=== PATIENT | female | born 1965 | race Two or more races ===

== ENCOUNTER 2018-06-23 06:17 | Day surgery (SDC) | payer BC ==
[2018-06-23 07:57] LABS: ADD MAN DIFF? NO
[2018-06-23 08:14] LABS: WHITE BLOOD COUNT 7.9 10^3/ul (4.8-10.8)
[2018-06-23 08:14] LABS: BASOPHIL # 0.1 10^3/ul (0.0-0.1); BASOPHILS % 0.8 % (0.0-2.0); EOSINOPHILS # 0.2 10^3/ul (0.0-0.5); HEMATOCRIT 38.6 % (37.0-47.0); HEMOGLOBIN 12.7 g/dl (12.0-16.0); LYMPHOCYTES # 2.9 10^3/ul (0.8-2.9); LYMPHOCYTES % 36.5 % (15.0-51.0); MEAN CORPUSCULAR HEMOGLOBIN 30.4 pg (29.0-33.0); MEAN CORPUSCULAR HGB CONC 32.9 g/dl (32.0-37.0); MEAN CORPUSCULAR VOLUME 92.3 fl (82.0-101.0); MEAN PLATELET VOLUME 9.4 fl (7.4-10.4); MONOCYTE # 0.7 10^3/ul (0.3-0.9); MONOCYTES % 8.7 % (0.0-11.0); NEUTROPHIL # 4.1 10^3/ul (1.6-7.5); NEUTROPHILS % 51.6 % (39.0-77.0); PLATELET COUNT 328 10^3/UL (140-415); RED BLOOD COUNT 4.18 10^6/ul (4.20-5.40); RED CELL DISTRIBUTION WIDTH 12.1 % (11.5-14.5)
[2018-06-23] MEDS ORDERED: LIDOCAINE 2% (SDV) 5 ML INJ (09:35)
[2018-06-23] MEDS ORDERED: PROPOFOL 20 ML (09:35)
[2018-06-23] MEDS ORDERED: FENTAnyl 50 MCG/ML VIAL (09:35)
[2018-06-23] MEDS ORDERED: CEFAZOLIN 1 GM INJ (09:46)
[2018-06-23] MEDS ORDERED: FAMOTIDINE 20 MG INJ (09:46)
[2018-06-23] MEDS ORDERED: DEXAMETHASONE 4 MG/ML 5 ML INJ (09:46)
[2018-06-23] MEDS ORDERED: ONDANSETRON 4 MG INJ (09:46)
[2018-06-23] MEDS ORDERED: HYDROmorphONE 1 MG/5 ML IV SYRINGE IV (10:30)
[2018-06-23] MEDS ORDERED: OXYCODONE/ACETAMINOPHEN (5/325) TAB PO (10:30)
[2018-06-23] MEDS ORDERED: KETOROLAC 30 MG INJ IV (10:30)
[2018-06-23] MEDS ORDERED: MEPERIDINE 25 MG INJ IV (10:30)
[2018-06-23] MEDS ORDERED: FENTAnyl 50 MCG/ML VIAL IV ×2 (10:30)
[2018-06-23] MEDS: HYDROmorphONE 1 MG/5 ML IV SYRINGE IV (10:47)
[2018-06-23] MEDS ORDERED: ACETAMINOPHEN 325 MG TAB PO (11:00)
== END 2018-06-23 11:59 | disposition home or self-care (01) ==
LOC: SDS 06:17
DX: T83.89XA Other specified complication of genitourinary prosthetic devices, implants and grafts, initial encounter (principal); Y76.8 Miscellaneous obstetric and gynecological devices associated with adverse incidents, not elsewhere classified; Y83.8 Other surgical procedures as the cause of abnormal reaction of the patient, or of later complication, without mention of misadventure at the time of the procedure; I10 Essential (primary) hypertension; E03.9 Hypothyroidism, unspecified
CPT/HCPCS: 58562; 84702; 85025; 86850; 86900; 86901; 88300; 88305